=== PATIENT | female | born 1950 | race American Indian/Alaskan Native ===

== ENCOUNTER 2020-12-23 14:20 | Emergency (ER) | payer MEDICARE, OTHER ==
[2020-12-23 15:28] VITALS: BP 124/73
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
--- NOTE | 2020-12-23 16:02 | XRay Report ---
XR pelvis 1-2V INDICATION / CLINICAL INFORMATION: Bilateral hip pain. COMPARISON: None available. FINDINGS: BONES/JOINT(S): No acute fracture or subluxation. Mild bilateral hip DJD. No focal bone lesions. SOFT TISSUES: Long-standing IUD is seen projecting over the pelvis. ADDITIONAL FINDINGS: None. Signer Name: Vinay Nice MD Signed: 12/23/2020 3:58 PM Workstation Name: [id number]
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
[2020-12-23] MEDS ORDERED: ACETAMINOPHEN 500 MG TAB PO ONE (16:32)
[2020-12-23] MEDS ORDERED: KETOROLAC 30 MG/1 ML INJ IM ONE (16:32)
== END 2020-12-23 17:51 | disposition home or self-care (01) ==
LOC: ED 14:20
DX: M54.5 Low back pain (principal); I11.0 Hypertensive heart disease with heart failure; I50.9 Heart failure, unspecified; Z87.891 Personal history of nicotine dependence; Z98.890 Other specified postprocedural states; Z88.8 Allergy status to other drugs, medicaments and biological substances; Z79.899 Other long term (current) drug therapy; V03.09XA Pedestrian with other conveyance injured in collision with car, pick-up truck or van in nontraffic accident, initial encounter; Y93.89 Activity, other specified; Y92.410 Unspecified street and highway as the place of occurrence of the external cause; Y99.8 Other external cause status
CPT/HCPCS: 72131; 72170; 96372; 99284; J1885